=== PATIENT | male | born 1990 | race Caucasian/White ===

== ENCOUNTER 2020-04-16 10:05 | Emergency (ER) | payer SELFPAY ==
[2020-04-16] MEDS ORDERED: AZITHROMYCIN 250MG TABLET As Ordered ONE (12:42)
[2020-04-16] MEDS ORDERED: cefTRIAXone SOD 250MG VIAL (J0696 PER 250MG) ONE (12:42)
[2020-04-16] MEDS ORDERED: LIDOCAINE 1% SDV 5ML VIAL ONE (12:42)
[2020-04-16] MEDS ORDERED: cefTRIAXone SOD 250MG VIAL (J0696 PER 250MG) As Ordered ONE (12:42)
[2020-04-16] MEDS ORDERED: AZITHROMYCIN 250MG TABLET ONE (12:42)
[2020-04-16] MEDS ORDERED: LIDOCAINE 1% SDV 5ML VIAL As Ordered ONE (12:42)
[2020-05-22 20:17] LABS: APPEARANCE, URINE HAZY (CLEAR); BACTERIA, URINE AUTO NEGATIVE (NEGATIVE); BILIRUBIN, URINE AUTO NEGATIVE (NEGATIVE); BLOOD, URINE BLOOD 3+ (NEGATIVE); COLOR, URINE YELLOW (YELLOW); GLUCOSE, URINE (UA) AUTO NEGATIVE (NEGATIVE); KETONE, URINE AUTO NEGATIVE (NEGATIVE); LEUKOCYTE ESTERASE, URINE AUTO NEGATIVE (NEGATIVE); NITRITE, URINE AUTO NEGATIVE (NEGATIVE); PROTEIN, URINE AUTO NEGATIVE (NEGATIVE); RBC, URINE AUTO TNTC /HPF (0-3); SPECIFIC GRAVITY URINE AUTO 1.017 (1.002-1.035); SQUAMOUS EPITHELIAL CELL UR AU 0 /HPF (0-6); UROBILINOGEN, URINE AUTO 0.2 mg/dL (0.0-2.0); WBC, URINE AUTO 1 /HPF (0-3)
[2020-05-31 09:47] LABS: CHLAMYDIA DNA AMPLIFICATION POSITIVE (NEGATIVE); GC DNA AMPLIFICATION NEGATIVE (NEGATIVE)
== END 2020-04-16 12:45 | disposition home or self-care (01) ==
LOC: M ED 10:05
DX: A56.8 Sexually transmitted chlamydial infection of other sites (principal); F17.290 Nicotine dependence, other tobacco product, uncomplicated
CPT/HCPCS: 81001; 87661; 99283; J0696